=== PATIENT | female | born 1990 | race Two or more races ===

== ENCOUNTER 2023-11-23 18:55 | Emergency (ER) | payer OTHER ==
[2023-11-23 19:04] VITALS: BP 139/83; PULSE 84; RESP 18; TEMP 98; BMI 21.7
[2023-11-23] MEDS ORDERED: ACETAMINOPHEN 500 MG TABLET (FP) PO ONE (20:12)
[2023-11-23] MEDS ORDERED: IBUPROFEN 600 MG TABLET (FP) PO ONE ×2 (20:12→20:15)
[2023-11-23] MEDS ORDERED: ACETAMINOPHEN 500 MG TABLET (FP) ONE (20:15)
== END 2023-11-23 20:45 | disposition home or self-care (01) ==
LOC: JERFT 18:55
DX: S93.401A Sprain of unspecified ligament of right ankle, initial encounter (principal); X50.1XXA Overexertion from prolonged static or awkward postures, initial encounter; Y92.9 Unspecified place or not applicable
CPT/HCPCS: 73610-TC-RT-FY; 73630-TC-RT-FY; 99283-25

== ENCOUNTER 2024-04-28 09:33 | Emergency (ER) | payer OTHER ==
[2024-04-28 09:42] VITALS: BP 123/71; PULSE 86; RESP 18; TEMP 98.1; BMI 23.1
[2024-04-28 11:28] LABS: BASO % 0.4 % (0-2.0); EOS % 1.6 % (0-4.5); HCG,QUALITATIVE URINE Positive; HEMATOCRIT 36.6 % (32.4-45.2); HEMOGLOBIN 11.7 GM/dL (10.7-15.3); LYMPH % 30.5 % (8-40); MCH 23.7 pg (25.7-33.7); MCHC 31.8 g/dl (32.0-36.0); MEAN CELL VOLUME 74.6 fl (80-96); MEAN PLT VOLUME 8.2 fl (7.5-11.1); MONO % 10.6 % (3.8-10.2); NEUT % 56.9 % (42.8-82.8); PLATELET COUNT 272 10^3/uL (134-434); RBC 4.91 M/mm3 (3.60-5.2); RDW 18.6 % (11.6-15.6); WHITE BLOOD COUNT 6.3 K/mm3 (4.0-10.0)
[2024-04-28 11:29] LABS: URINE APPEARANCE CLEAR; URINE BILIRUBIN NEGATIVE (NEGATIVE); URINE COLOR YELLOW; URINE GLUCOSE (UA) NEGATIVE (NEGATIVE); URINE KETONE NEGATIVE (NEGATIVE); URINE LEUK ESTERASE NEGATIVE (NEGATIVE); URINE NITRITE NEGATIVE (NEGATIVE); URINE PROTEIN NEGATIVE (NEGATIVE); URINE UROBILINOGEN 0.2 mg/dL (0.2-1.0)
[2024-04-28 12:02] LABS: POTASSIUM 4.1 mmol/L (3.5-5.1)
[2024-04-28 12:04] LABS: CALCIUM 9.2 mg/dL (8.5-10.1)
[2024-04-28 12:05] LABS: ALBUMIN 3.9 g/dl (3.4-5.0); BLOOD UREA NITROGEN 9.5 mg/dL (7-18)
[2024-04-28 12:08] LABS: CREATININE 0.7 mg/dL (0.55-1.3)
[2024-04-28 12:09] LABS: TOT PROT 7.8 g/dl (6.4-8.2)
[2024-04-28 12:10] LABS: BILIRUBIN,TOTAL 0.2 mg/dL (0.2-1)
[2024-04-28] MEDS ORDERED: ACETAMINOPHEN 325 MG TABLET (FP) ONE (13:59)
[2024-04-28] MEDS: ACETAMINOPHEN 500 MG TABLET (FP) PO ONE (14:00)
== END 2024-04-28 14:06 | disposition home or self-care (01) ==
LOC: JER 09:33
DX: O99.891 Other specified diseases and conditions complicating pregnancy (principal); R51.9 Headache, unspecified; O26.891 Other specified pregnancy related conditions, first trimester; R10.30 Lower abdominal pain, unspecified; Z3A.01 Less than 8 weeks gestation of pregnancy
CPT/HCPCS: 36415; 76817-TC; 80053; 81003; 84702; 84703; 85025; 87070; 87077; 87086; 87205; 99284-25

== ENCOUNTER 2024-05-13 23:26 | Emergency (ER) | payer OTHER ==
[2024-05-13 23:30] VITALS: BP 131/88; PULSE 78; RESP 18; TEMP 98.4; BMI 23.9
[2024-05-14] MEDS: SODIUM CHLORIDE 0.9% 500 ML INFUS.BAG IV ONE (00:35)
[2024-05-14 00:40] LABS: BASO % 0.4 % (0-2.0); HEMATOCRIT 36.7 % (32.4-45.2); HEMOGLOBIN 12.2 GM/dL (10.7-15.3); LYMPH % 22.6 % (8-40); MCH 24.4 pg (25.7-33.7); MCHC 33.3 g/dl (32.0-36.0); MEAN CELL VOLUME 73.2 fl (80-96); MEAN PLT VOLUME 7.9 fl (7.5-11.1); MONO % 8.9 % (3.8-10.2); NEUT % 67.1 % (42.8-82.8); PH,URINE 6.5 (5.0-8.0); PLATELET COUNT 283 10^3/uL (134-434); RBC 5.02 M/mm3 (3.60-5.2); RDW 18.8 % (11.6-15.6); URINE APPEARANCE CLEAR; URINE BILIRUBIN NEGATIVE (NEGATIVE); URINE COLOR YELLOW; URINE GLUCOSE (UA) NEGATIVE (NEGATIVE); URINE KETONE NEGATIVE (NEGATIVE); URINE LEUK ESTERASE NEGATIVE (NEGATIVE); URINE NITRITE NEGATIVE (NEGATIVE); URINE PROTEIN NEGATIVE (NEGATIVE); URINE UROBILINOGEN 0.2 mg/dL (0.2-1.0); WHITE BLOOD COUNT 9.1 K/mm3 (4.0-10.0)
[2024-05-14] MEDS ORDERED: ACETAMINOPHEN INJECTION 100 ML IVPB ONE (00:48)
[2024-05-14] MEDS ORDERED: METOCLOPRAMIDE HCL INJECTION 10 MG/2 ML VIAL ONE (00:48)
[2024-05-14] MEDS: ACETAMINOPHEN 1000 MG/100 ML BAG IVPB ONE (00:56)
[2024-05-14] MEDS: METOCLOPRAMIDE HCL INJECTION 10 MG/2 ML VIAL IVPUSH ONE (00:56)
[2024-05-14 01:07] LABS: POTASSIUM 4.7 mmol/L (3.5-5.1)
[2024-05-14 01:09] LABS: CALCIUM 8.9 mg/dL (8.5-10.1)
[2024-05-14 01:10] LABS: ALBUMIN 3.5 g/dl (3.4-5.0); BLOOD UREA NITROGEN 7.3 mg/dL (7-18); MAGNESIUM 1.8 mg/dL (1.8-2.4)
[2024-05-14 01:13] LABS: CREATININE 0.6 mg/dL (0.55-1.3)
[2024-05-14 01:14] LABS: BILIRUBIN,TOTAL 0.2 mg/dL (0.2-1); TOT PROT 7.6 g/dl (6.4-8.2)
== END 2024-05-14 02:12 | disposition home or self-care (01) ==
LOC: JER 23:26
PROC: 3E033NZ Introduction of Analgesics, Hypnotics, Sedatives into Peripheral Vein, Percutaneous Approach (ICD-10-PCS; principal; 2024-05-14)
PROC: 3E033GC Introduction of Other Therapeutic Substance into Peripheral Vein, Percutaneous Approach (ICD-10-PCS; 2024-05-14)
DX: O99.351 Diseases of the nervous system complicating pregnancy, first trimester (principal); G43.909 Migraine, unspecified, not intractable, without status migrainosus; O21.9 Vomiting of pregnancy, unspecified; O99.891 Other specified diseases and conditions complicating pregnancy; R42 Dizziness and giddiness; Z3A.08 8 weeks gestation of pregnancy
CPT/HCPCS: 36415; 80053; 81003; 83690; 83735; 85025; 87086; 93005; 93010; 99284-25; J0131